=== PATIENT | female | born 1970 | race Caucasian/White ===

== ENCOUNTER → 2020-06-20 14:09 | Outpatient (CLI) | payer BC, SELFPAY ==
--- NOTE | ~2020-06-20 | MM_ITS ---
EXAMINATION: MM screening bri BI w michel HISTORY: Screening TECHNIQUE: Craniocaudal and mediolateral oblique 3-D tomosynthesis images were obtained and synthetic 2-D images were generated. CAD analysis was submitted and interpreted. COMPARISON: Comparison to multiple prior studies sequentially, with oldest reviewed study dated 01/07. BREAST PARENCHYMAL COMPOSITION: There are scattered areas of fibroglandular density. FINDINGS: Stable benign-appearing left breast calcifications. There is no evidence of suspicious mass , calcification, or architectural distortion to suggest malignancy in either breast. There has been n o suspicious interval change. IMPRESSION: 1. No mammographic evidence of malignancy. 2. Recommend routine screening mammography in one year. BI-RADS Category 2: Benign finding(s). Reviewed, dictated and finalized at location A. HER SUPERVISOR
== END ==
PROVIDERS: Visit Provider Obstetrics & Gynecology
DX: Z12.31 Encounter for screening mammogram for malignant neoplasm of breast (principal)
CPT/HCPCS: 77063; 77067

== ENCOUNTER → 2021-10-02 10:20 | Outpatient (CLI) | payer BC, SELFPAY ==
--- NOTE | ~2021-10-02 | MM_ITS ---
EXAMINATION: MM screening bri BI w michel HISTORY: Screening TECHNIQUE: Craniocaudal and mediolateral oblique 3-D tomosynthesis images were obtained and synthetic 2-D images were generated. CAD analysis was submitted and interpreted. COMPARISON: No prior mammogram is available for comparison at this institution.. BREAST PARENCHYMAL COMPOSITION: There are scattered areas of fibroglandular density. FINDINGS: There is no evidence of suspicious mass, calcification, or architectural distortion to sugg est malignancy in either breast. There has been no suspicious interval change. IMPRESSION: 1. No mammographic evidence of malignancy. 2. Recommend routine screening mammography in one year. BI-RADS Category 1: Negative Reviewed, dictated and finalized at location A.
== END ==
PROVIDERS: Visit Provider Obstetrics & Gynecology
DX: Z12.31 Encounter for screening mammogram for malignant neoplasm of breast (principal)
CPT/HCPCS: 77063; 77067

== ENCOUNTER 2021-11-13 01:28 | Day surgery (SDC) | payer BC, SELFPAY ==
[2021-10-29 14:25] VITALS: BMI 26.5
[2021-11-13 08:57] VITALS: BP 126/76; PULSE 82; RESP 19; TEMP 36.7; O2SAT 100
[2021-11-13] MEDS: LACTATED RINGERS 1,000 ML 150 ML IV CONT (09:09)
--- NOTE | 2021-11-13 09:15 | WPDANESEPPF ---
Anes - Initial Pre Proc Eval Procedure: Operation Date: 11/13/21 10:00 Proposed Procedures p Screening Colonoscopy - Matthias Rojas MD Date/Time: 11/13/21 09:15 Surgeon: Matthias Rojas MD Pre Op Diagnosis: neoplasm screening Patient Data Age: 51 Gender: F Height: 1.57 m Weight: 67.5 kg Last Vital Signs Temp 36.7 C 11/13/21 08:57 Pulse 82 11/13/21 08:57 Resp 19 11/13/21 08:57 BP 126/76 11/13/21 08:57 Pulse Ox 100 11/13/21 08:57 Allergies Allergy/AdvReac Type Severity Reaction Status Date / Time Cephalosporins Allergy Mild Rash Verified 11/13/21 08:55 Home Medications Medication Instructions Recorded Confirmed Type cholecalciferol (vitamin D3) 50 50 mcg PO DAILY #90 tablet 03/12/21 10/29/21 Rx mcg (2,000 unit) tablet simvastatin 20 mg tablet 20 mg PO DAILY #90 tablet 03/12/21 10/29/21 Rx rizatriptan [Maxalt] 10 mg PO ONCE PRN 10/29/21 10/29/21 History Patient hx anesthesia problems: post op nausea/vomiting Family hx anesthesia problems: none Results Review: All pre-operative results and documents have been reviewed as part of the pre-operative evaluation. [facility] Past Medical History Medical History Endometriosis determined by laparoscopy Heartburn High cholesterol Migraines Palpitations Social History Social History Smoking status: Never smoker Second hand tobacco smoke exposure: No Alcohol intake: never Substance use: never Living arrangements: with family Spiritual care concerns: No Agree to blood products: No Anes - Eval Final PreProcedure Day of Procedure 11/13/21 09:15 Patient weight: overweight Heart: regular rate and rhythm Lungs: clear to auscultation Airway: Mallampati scale class II Neurological: alert and oriented Last oral intake: >/= 8 hours ASA classification: II Emergent: no Anesthetic plan: proceed Anesthesia type and monitoring: general GIVS and standard monitoring Results Review: All pre-operative results and documents have been reviewed as part of the pre-operative evaluation. Informed Consent: The patient's anesthetic plan and its attendant risks and benefits were discussed with the patient/family/POA. Questions were solicited and answers provided to the satisfaction of the patient/family/POA.
--- NOTE | 2021-11-13 09:21 | PM.HPGS ---
History of Present Illness History of Present Illness Consent: Risks, benefits, and alternatives have been discussed and questions answered. Patient agrees to proceed with procedure. Chief complaint: neoplasm screening Narrative: Elin Deleon is a 51 year old female here for first screening colonoscopy Review of Systems Constitutional: Constitutional: Denies headache(s) and Denies weakness Eyes: Eyes: Denies blurry vision ENT: Reports Normal hearing present, Denies headache(s) and Denies neck pain Cardiovascular: Cardiovascular: Denies chest pain and Denies dyspnea Respiratory: Respiratory: Denies dyspnea Gastrointestinal: Gastrointestinal: Reports no additional gastrointestinal complaints Genitourinary: Genitourinary: Denies dysuria Musculoskeletal: Musculoskeletal: Denies neck pain Integumentary/Breasts: Skin/Breast: Denies dry skin Neurologic: Reports Normal hearing present, Denies headache(s) and Denies weakness Psychiatric: Psychiatric: Denies anxiety Endocrine: Endocrine: Denies change in body appearance Hematologic/Lymphatic: Hematologic/Lymphatic: Denies easy bleeding Allergic/Immunologic: Allergic/Immunologic: Denies urticaria PMFSH Past Medical History Medical History Endometriosis determined by laparoscopy Heartburn High cholesterol Migraines Palpitations Social History Social History Smoking status: Never smoker Second hand tobacco smoke exposure: No Alcohol intake: never Substance use: never Living arrangements: with family Spiritual care concerns: No Agree to blood products: No Meds Home Medications and Allergies Home Medications Medication Instructions Recorded Confirmed Type cholecalciferol (vitamin D3) 50 50 mcg PO DAILY #90 tablet 03/12/21 10/29/21 Rx mcg (2,000 unit) tablet simvastatin 20 mg tablet 20 mg PO DAILY #90 tablet 03/12/21 10/29/21 Rx rizatriptan [Maxalt] 10 mg PO ONCE PRN 10/29/21 10/29/21 History Allergies Allergy/AdvReac Type Severity Reaction Status Date / Time Cephalosporins Allergy Mild Rash Verified 11/13/21 08:55 Vital Signs Vital Signs - 24 hr 11/13/21 08:57 Temperature 98.1 F Pulse Rate 82 Respiratory Rate 19 Blood Pressure 126/76 Pulse Oximetry 100 Exam Const: General: comfortable and no acute distress HENMT: General nose exam: Normal nares present Eyes: General: appearance normal, both eyes and all related structures Neck: Neck: no JVD Resp: Auscultation: clear to auscultation bilaterally Cardio: Rate: regular rate Rhythm: regular rhythm GI: Inspection: non-distended GI Palp: Yes Soft to palpation Skin: General skin exam: normal color Neuro: General: gait normal Speech: normal speech Extrem: General: normal to inspection Psych: Mental Status: mental status grossly normal Assessment and Plan Assessment and plan (1) Screening for colon cancer: Code(s): Z12.11 - Encounter for screening for malignant neoplasm of colon Status: Acute Assessment and Plan: colonoscopy
[2021-11-13 09:37] VITALS: BP 86/45; PULSE 77; RESP 25; O2SAT 98
[2021-11-13 09:47] VITALS: BP 89/52; PULSE 70; RESP 15; O2SAT 99
[2021-11-13 09:57] VITALS: BP 101/61; PULSE 57; RESP 17; O2SAT 100
== END 2021-11-13 10:04 | disposition home or self-care (01) ==
PROVIDERS: PCP Internal Medicine; Visit Provider Internal Medicine Gastroenterology
PROC: 0DJD8ZZ Inspection of Lower Intestinal Tract, Via Natural or Artificial Opening Endoscopic (ICD-10-PCS; CPT 45378; principal; 2021-11-13 10:00)
DX: Z12.11 Encounter for screening for malignant neoplasm of colon (principal); K63.5 Polyp of colon; K64.8 Other hemorrhoids; E78.00 Pure hypercholesterolemia, unspecified; R12 Heartburn; G43.909 Migraine, unspecified, not intractable, without status migrainosus
CPT/HCPCS: 45385; 88305; J2704; J7120

== ENCOUNTER → 2022-12-16 07:32 | Outpatient (CLI) | payer BC, SELFPAY ==
--- NOTE | ~2022-12-16 | MM_ITS ---
EXAMINATION: MM screening [facility] BI w michel HISTORY: Screening TECHNIQUE: Craniocaudal and mediolateral oblique 3-D tomosynthesis images were obtained and synthetic 2-D images were generated. CAD analysis was submitted and interpreted. COMPARISON: Comparison to multiple prior studies sequentially, with oldest reviewed study dated 01/2017. BREAST PARENCHYMAL COMPOSITION: There are scattered areas of fibroglandular density. FINDINGS: There is no evidence of suspicious mass, calcification, or architectural distortion to sugg est malignancy in either breast. There has been no suspicious interval change. IMPRESSION: 1. No mammographic evidence of malignancy. 2. Recommend routine screening mammography in one year. BI-RADS Category 1: Negative Reviewed, dictated and finalized at location A.
== END ==
PROVIDERS: PCP Obstetrics & Gynecology; Visit Provider Obstetrics & Gynecology
DX: Z12.31 Encounter for screening mammogram for malignant neoplasm of breast (principal)
CPT/HCPCS: 77063; 77067

== ENCOUNTER 2023-10-07 12:55 | Outpatient (CLI) | payer BC, SELFPAY ==
--- NOTE | ~2023-10-07 | XR_ITS ---
[id number] 10/07/2023 13:24 Indication: Cervicalgia Procedure: 4 view cervical spine Comparison: No prior studies for comparison. Findings: Vertebral body heights are maintained. No fracture, subluxation or dislocation. No preverte bral soft tissue swelling. Odontoid process is normal. Lateral masses normally aligned. Impression: 1: No significant abnormality of the cervical spine. Reviewed, dictated and finalized at location B. Impression: 1: No significant abnormality of the cervical spine.
== END 2023-10-07 12:56 ==
LOC: MICIMG 12:56
PROVIDERS: PCP Nurse Practitioner; Visit Provider Nurse Practitioner
DX: M54.2 Cervicalgia (principal)
CPT/HCPCS: 72040

== ENCOUNTER 2023-10-08 08:11 | Emergency (ER) | payer BC, SELFPAY ==
[2023-10-08 08:23] VITALS: BP 126/68; PULSE 75; RESP 18; TEMP 36.7; O2SAT 98
--- NOTE | 2023-10-08 08:32 | ED.SKABFB ---
HPI - Skin/Abscess/Foreign Bdy General Chief complaint: Skin/Abscess/Foreign Body Stated complaint: rash Time Seen by Provider: 10/08/23 09:10 Source: patient, RN notes reviewed and old records reviewed Mode of arrival: ambulatory Limitations: no limitations History of Present Illness HPI narrative: 53-year-old female presents to the [facility] with an itchy sometimes irritating rash, 4 spots to the right side of her face that started yesterday. States that it is causing her teeth to hurts, states it is not dental it just hurts. Onset (ago): day(s) (1) Related Data Allergies Allergy/AdvReac Type Severity Reaction Status Date / Time cephalexin [From Keflex] Allergy Severe Rash Verified 10/07/23 07:35 Cephalosporins Allergy Mild Rash Verified 10/08/23 08:37 Review of Systems Review of Systems: All systems reviewed & are unremarkable except as noted in HPI and below Constitutional: Constitutional: Reports no additional constitutional complaints Eyes: Eyes: Reports no additional eye complaints ENT: Reports system reviewed and no additional complaints, except as documented Cardiovascular: Cardiovascular: Reports no additional cardiovascular complaints, Denies chest pain and Denies dyspnea Respiratory: Respiratory: Reports no additional respiratory complaints, Denies chest congestion, Denies cough and Denies dyspnea Gastrointestinal: Gastrointestinal: Reports no additional gastrointestinal complaints, Denies abdominal pain, Denies nausea and Denies vomiting Musculoskeletal: Musculoskeletal: Reports no additional musculoskeletal complaints Integumentary/Breasts: Skin/Breast: Reports as per HPI Neurologic: Reports system reviewed and no additional complaints, except as documented Psychiatric: Psychiatric: Reports no additional psychiatric complaints Allergic/Immunologic: Allergic/Immunologic: Reports no additional allergic/immunologic complaints [facility] Past Medical History Medical History Endometriosis determined by laparoscopy Heartburn High cholesterol Migraines Palpitations Surgical History Surgical History History of 2005 primary c/s 01/16/08 rpt C/s w/tubal ligation History of laparoscopy 1993 lscope--endometriosis 1996 lscope--endometriosis 1997 dx lscope--endometriosis 1999 dx lscope--endometriosis 2006 dx lscope--endometriosis History of tubal ligation (01/16/08) Family History Family History Grandparent Carcinoma of colon paternal grandfather Neoplasm of ovary maternal grandmother Social History Social History Smoking status: Never smoker Second hand tobacco smoke exposure: No Alcohol intake: never Substance use: never Substance use type: does not use Lack of Transportation: No Lack of Food: Never True Current Housing: I Have Housing Concerned About Future Housing: No Difficulty Paying Gas/Electric Bills: No Difficulty Paying for Meds: No Currently Unemployed: No Education: Bachelor's Degree Difficulty w/ Childcare or Family Care: No Living arrangements: with family Additional living arrangements comments: Occupation/Education: occupation 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 There is no relevant family history pertinent to the patient complaint. Exam Const: General: cooperative, healthy appearing, comfortable, no acute distress, well developed, alert
[2023-10-08] MEDS: FLUORESCEIN SOD 1 MG/STRIP EACH EYE (09:20)
[2023-10-08] MEDS: TETRACAINE HCL 0.5% OPHTH SOLN 4 ML BTL 1 DROP EACH EYE (09:21)
== END 2023-10-08 09:45 | disposition home or self-care (01) ==
PROVIDERS: Emergency Provider Nurse Practitioner; PCP Nurse Practitioner
DX: B02.9 Zoster without complications (principal); N80.9 Endometriosis, unspecified; E78.00 Pure hypercholesterolemia, unspecified
CPT/HCPCS: 99213; G0463

== ENCOUNTER 2024-01-27 12:56 | Outpatient (CLI) | payer BC, SELFPAY ==
--- NOTE | ~2024-01-27 | MM_ITS ---
EXAMINATION: MM screening bri BI w michel HISTORY: Screening TECHNIQUE: Craniocaudal and mediolateral oblique 3-D tomosynthesis images were obtained and synthetic 2-D images were generated. CAD analysis was submitted and interpreted. COMPARISON: Comparison to multiple prior studies sequentially, with oldest reviewed study dated 03/22. BREAST PARENCHYMAL COMPOSITION: Not dense: There are scattered areas of fibroglandular density. FINDINGS: There is no evidence of suspicious mass, calcification, or architectural distortion to sugg est malignancy in either breast. There has been no suspicious interval change. IMPRESSION: 1. No mammographic evidence of malignancy. 2. Recommend routine screening mammography in one year. BI-RADS Category 1: Negative Reviewed, dictated and finalized at location B.
== END 2024-01-27 12:57 ==
PROVIDERS: PCP Obstetrics & Gynecology; Visit Provider Obstetrics & Gynecology
DX: Z12.31 Encounter for screening mammogram for malignant neoplasm of breast (principal)
CPT/HCPCS: 77063; 77067

== ENCOUNTER 2025-06-05 11:55 | Emergency (ER) | payer BC, SELFPAY ==
--- NOTE | ~2025-06-05 | XR_ITS ---
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 Pain 1st metacarpal Comparison: None Technique: 3 views right hand Findings/impression: 1. No fracture or dislocation right hand. Reviewed, dictated and finalized at location R. [employer]
[2025-06-05 12:04] VITALS: BP 133/68; PULSE 81; RESP 18; TEMP 36.4; O2SAT 100
--- NOTE | 2025-06-05 12:17 | ED_ITS ---
HPI - Extremity Injury (Upper) General Chief Complaint: Extremity Injury, Upper Stated Complaint: fall Time Seen by Provider: 06/05/25 12:11 Source: patient and RN notes reviewed Mode of arrival: ambulatory Limitations: no limitations History of Present Illness HPI narrative: 54-year-old female patient presents today complaining of right hand injury and an abrasion to the right knee after she fell walking her dog approximately 1 hour prior to arrival. Denies wrist pain, head injury or loss of consciousness. She currently rates her pain 01/17. No OTC treatment prior to arrival. She is not up-to-date on her tetanus vaccine. Denies numbness or tingling. Related Data Home Medications ?Medication ?Instructions ?Recorded ?Confirmed ?Last Taken ?Type multivitamin 1 tablet PO DAILY 04/25/25 1 Unknown History Allergies Allergy/AdvReac Type Severity Reaction Status Date / Time Cephalosporins Allergy Mild Rash Verified 06/05/25 12:04 PMFSH Past Medical History Medical History Heartburn Palpitations High cholesterol Endometriosis determined by laparoscopy Migraines Surgical History Surgical History History of laparoscopy 1993 lscope--endometriosis 1996 lscope--endometriosis 1997 dx lscope--endometriosis 1999 dx lscope--endometriosis 2006 dx lscope--endometriosis History of tubal ligation (01/16/08) History of 2004 primary c/s 01/16/08 rpt C/s w/tubal ligation Family History Family History Grandparent Carcinoma of colon paternal grandfather Neoplasm of ovary maternal grandmother Social History Social History Smoking status: Never smoker Second hand tobacco smoke exposure: No Alcohol intake: never Substance use: never Substance use type: does not use Lack of Transportation: No Lack of Food: Never True Current Housing: I Have Housing Concerned About Future Housing: No Difficulty Paying Gas/Electric Bills: No Difficulty Paying for Meds: No Currently Unemployed: No Education: Bachelor's Degree Difficulty w/ Childcare or Family Care: No Living arrangements: with family Additional living arrangements comments: Occupation/Education: occupation 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 Please see nursing chart for further information. There is no relevant family history pertinent to the presenting complaint Exam Narrative: GENERAL: Well-appearing, well-nourished, and in no acute distress. HEAD: Normocephalic, atraumatic. EYES: EOMI. No redness or drainage. Conjunctivae normal. ENT: Mucous membranes pink and moist. NECK: Normal AROM. CHEST: No respiratory distress. EXTREMITIES: Right hand: Large area of ecchymosis and mild edema to the right thenar eminence with tenderness to palpation. No tenderness or abnormality to the remainder of the hand. Distal sensation intact in all 5 fingers. Capillary refill normal. Radial pulse normal. No tenderness to the wrist. Small abrasion to the knee. No bony tenderness of the knee. Full range of motion without pain. Neurovascularly intact SKIN: Warm, dry, no rash. Capillary refill normal. Normal skin turgor. NEURO: No focal deficits. Alert and oriented x3. Gait steady. PSYCH: Normal affect. No signs of depression or anxiety. Course Course Level of Care: Express Care Visit Vital Signs Vital signs: Vital Signs Temperature 97.6 F 06/05/25 12:04 Pulse Rate 81 06/05/25 12:04 Respiratory Rate 18 06/05/25 12:04 Blood Pressure 133/68 06/05/25 12:04 Pulse Oximetry 100 06/05/25 12:04 Oxygen Delivery Room Air 06/05/25 12:04 Temperature 97.6 F 06/05/25 12:04 Pulse Rate 81 06/05/25 12:04 Respiratory Rate 18 06/05/25 12:04 Blood Pressure 133/68 06/05/25 12:04 Pulse Oximetry 100 06/05/25 12:04 Oxygen Delivery Room Air 06/05/25 12:04 Reviewed MDM - Extremity Injury (Upper) MDM Narrative Medical decision making narrative: 54-year-old female patient presents today complaining of right hand injury and an abrasion to the right knee after she fell walking her dog approximately 1 hour prior to arrival. Denies wrist pain, head injury or loss of consciousness. She currently rates her pain 01/17. No OTC treatment prior to arrival. She is not up-to-date on her tetanus vaccine. Denies numbness or tingling. Upon exam, Right hand: Large area of ecchymosis and mild edema to the right thenar eminence with tenderness to palpation. No tenderness or abnormality to the remainder of the hand. Distal sensation intact in all 5 fingers. Capillary refill normal. Radial pulse normal. No tenderness to the wrist. Small abrasion to the knee. No bony tenderness of the knee. Full range of motion without pain. Neurovascularly intact. X-ray is negative. Abrasion cleansed with wound cleanser and dressed with Band- Aid. Tetanus shot updated. Dose of ibuprofen given for discomfort. Recommend conservative treatment for 7-10 days with PCP or orthopedic follow-up if symptoms persist. Patient agrees with plan. Vital signs stable. Anticipatory guidance given. Differential Diagnosis Differential diagnosis: Likely fracture of hand and other (Hand contusion, abrasion) Imaging Data Radiologist's impression: Findings/impression: 1. No fracture or dislocation right hand. Reviewed, dictated and finalized at location R. 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 Elevate and ice the hand. Take Tylenol or ibuprofen for discomfort if needed. Follow-up with your PCP or orthopedics in 7-10 days if symptoms are not improving. Patient Language: Tamazight Prescriptions: No Action multivitamin Tablet 1 tablet PO DAILY pravastatin 40 mg tablet 40 mg PO DAILY Qty: 90 1RF Follow-up/Referrals: Max Quiros APRN [Primary Care Provider, Internal Medicine] Karsten Carpenter MD [Physician, Orthopedics] Time of Disposition: 12:58
[2025-06-05] MEDS: IBUPROFEN 600 MG TABLET PO (12:19)
[2025-06-05] MEDS: TETANUS,DIPHTHERIA,AC PERTUSSIS ADULT (0.5 ML) BOOSTRIX IM (12:19)
--- OUTSIDE RECORDS SUMMARY | 2025-06-05 12:25 | XMS_ITS | Clinical Summary ---
Author Organization [facility] Address [address] [place] [id number] Care Team Providers Care Feltmaker Name Role Phone None, Provider Primary Care Provider Unavaila ble Encounters Date Type Department Care Team Description 03/14/2025 8:16 AM CDT - 03/14/2025 11:59 PM CDT Hospital Encounter [facility] Mammography [address] [place] [address] Joshua Barry MD Discharge Disposition: Home or Self Care (Routine Discharge) 03/14/2025 Travel from Last 3 Months Social History Tobacco Use Types Packs/Day Years Used Date Smoking Tobacco: Never Assessed Comments Unknown Sex and Gender Information Value Date Recorded Sex Assigned at Female 03/14/2025 8:13 AM CDT Legal Sex Female 1:05 PM CDT Gender Identity Not on file Sexual Orientation Not on file Plan of Treatment Health Maintenance Due Date Last Done Comments Cervical Cancer Screening Pap Smear (Age 30 to 64) Every 3 Years 1971 Colorectal Cancer Screening Colonoscopy (10 Years) 1971 Annual Physical 1974 Hepatitis C 1989 DTaP, Tdap and Td Vaccines (1 - Tdap) 1990 Hepatitis B Vaccines (1 of 3 - 19+ 3-dose series) 1990 Cervical Cancer Screening Pap with HPV Testing (Age 30 to 64) Every 5 Years 2001 Cervical Cancer Screening with HPV 2001 Pneumococcal Vaccine: 50+ Years (1 of 1 - PCV) 2021 COVID-19 Vaccine ( season) 2025 04/22/2023, 04/02/2022, 01/01/2022, Additional history exists Influenza Adult (#1) 2025 04/28/2021 Mammogram Screening 03/14/2027 03/14/2025 Zoster Vaccines Completed 12/30/2023, 10/28/2023 Hepatitis A Vaccines Aged Out No long er eligible based on patient's age to complete this topic Meningococcal B Vaccine Aged Out No l onger eligible based on patient's age to complete this topic Meningococcal Vaccine Aged Out No israel cheryl eligible based on patient's age to complete this topic RSV Immunizations Under 20 Months Aged Out No longer eligible based on patient's age to complete this topic Procedures Procedure Name Priority Date/Time Associated Diagnosis Comments MG SCREENING W [facility]ID [facility]I Routine 03/14/2025 8:40 AM CDT Visit for screening mammogram from Last 3 Months Results * MG SCREENING W [facility]ID [facility] (03/14/2025 8:40 AM CDT) Anatomical Region Laterality Modality Breast Bilateral Mammography 03/14/2025 9:24 AM CDT Impressions 03/14/2025 9:28 AM CDT IMPRESSION: No suspicious mammographic findings. Recommendation: 1. Routine Screening, Bilateral Assessment: ACR BI-RADS 2 - BENIGN FINDING(S) Ordered By: JOSHUA BARRY Interpreted By: Julio Donis MD, 03/14/2025 9:24 AM Narrative 03/14/2025 9:28 AM CDT [address] [id number] Examination: Screening bilateral mammogram Exam Date: 03/14/2025 8:21 AM Clinical history: Routine screening. Comparison: 01/27/2024, 12/16/2022 Technique: Digital screening mammography of both breasts was performed. Breast tomosynthesis acquisitions were obtained and reviewed. This study was read with the assistance of a computer-aided detection system. Tissue density: There are scattered areas of fibroglandular density. Findings: No suspicious masses, malignant appearing calcifications, skin thickening or other abnormalities are present. Few benign-appearing calcifications. No significant change from the prior exam. us Joshua Barry MD MAMMO Final Result from Last 3 Months Insurance [facility] Care Teams Feltmaker Relationship Specialty Start Date End Date None, Provider, PCP - General UNKNOWN PHYSICIAN SPECIALTY 03/14/25
--- OUTSIDE RECORDS SUMMARY | 2025-06-05 12:25 | XMS_ITS | Clinical Summary ---
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 Gender Identity Not on file Sexual Orientation Not on file Plan of Treatment Health Maintenance Due Date Last Done Comments Hepatitis C Virus (HCV) Screening 1971 TdaP Immunization 1971 Hepatitis B Immunization (1 of 3 - 19+ 3-dose series) 1990 Pap Smear 1992 Cervical Cancer Screening (CCS) 2001 HPV/Cotest 2001 Cologuard 2016 Colonoscopy 2016 Colorectal Cancer Screening 2016 Immunochemical Fecal Occult Blood 2016 Pneumococcal Immunization (5 0+ years) (1 of 1 - PCV) 2021 Zoster Immunization (1 of 2) 2021 Influenza Immunization (#1) 2025 SARS-COV-2 Immunization ( season) 2025 05/31/2021, 10/23/2020, 10/02/2020 Respiratory Syncytial Virus (RSV) Immunization (Adult) (1 - 1-dose 75+ series) 2046 Human Papillomavirus (HPV) Immunization Aged Out No longer eligible b ased on patient's age to complete this topic Meningococcal Immunization (ACWY) Aged Out No longer eligible b ased on patient's age to complete this topic Rotavirus Immunization Aged Out No lo nger eligible based on patient's age to complete this topic
== END 2025-06-05 13:00 | disposition home or self-care (01) ==
PROVIDERS: Emergency Provider Nurse Practitioner; PCP Nurse Practitioner
DX: S80.211A Abrasion, right knee, initial encounter (principal); S60.221A Contusion of right hand, initial encounter; Z23 Encounter for immunization; W19.XXXA Unspecified fall, initial encounter; Y93.K1 Activity, walking an animal
CPT/HCPCS: 73130; 90471; 90715; 99213; A9270; G0463